=== PATIENT | female | born 1950 | race Caucasian/White ===

== ENCOUNTER 2019-04-12 10:25 | Emergency (ER) | payer MEDICARE ==
[2019-04-12] MEDS ORDERED: Albuterol/Ipratropium 3.0-0.5 MG/3 ML Neb Soln NEB ONE (11:47)
--- NOTE | 2019-04-12 11:47 | EDM.PDOC ---
ED HPI GENERAL MEDICAL PROBLEM - General Chief Complaint: Respiratory Problem Stated Complaint: SOB Time Seen by Provider: 04/12/19 11:33 Source of Information: Reports: Patient History Limitations: Reports: No Limitations - History of Present Illness INITIAL COMMENTS - FREE TEXT/NARRATIVE: 68 yo female presents with 1 week of cough. SOB has worsened over the last 72 hours. PPD smoker. vacationing to the area from [place]. generally healthy - Related Data Allergies Allergy/AdvReac Type Severity Reaction Status Date / Time No Known Allergies Allergy Verified 04/12/19 11:30 Home Meds: Home Meds Albuterol [Ventolin HFA] 1 - 2 puff INH ASDIRECTED 04/12/19 [History] Citalopram Hydrobromide [Celexa] 1 tab PO DAILY 04/12/19 [History] Omeprazole 1 tab PO DAILY 04/12/19 [History] Past Medical History Respiratory History: Reports: Asthma [employer] History: Reports: Psychiatric History: Reports: Addiction, Depression Immunologic History: Reports: Other (See Below) Other Immunologic History: psoriatic arthritis Dermatologic History: Reports: Psoriasis, Other (See Below) Other Dermatologic History: psoriatic arthritis Social & Family History - Tobacco Use Smoking Status *Q: Heavy Tobacco Smoker Years of Tobacco use: 45 Packs/Tins Daily: 1 - Alcohol Use Days Per Week of Alcohol Use: 5 Number of Drinks Per Day: 2 Total Drinks Per Week: 10 - Recreational Drug Use Recreational Drug Use: Yes Recreational Drug Type: Reports: Marijuana/Hashish Other Recreational Drug Type: edible marijuana. ED ROS GENERAL - Review of Systems Review Of Systems: See Below Constitutional: Reports: Malaise, Fatigue. Denies: Fever, Chills HEENT: Reports: Sinus Problem Respiratory: Reports: Shortness of Breath, Wheezing, Cough, Sputum Cardiovascular: Denies: Chest Pain, Edema GI/Abdominal: Denies: Abdominal Pain, Constipation, Diarrhea Skin: Denies: Rash ED EXAM, GENERAL - Physical Exam Exam: See Below Exam Limited By: No Limitations General Appearance: Alert, WD/WN, No Apparent Distress Ears: Normal External Exam, Normal Canal, Hearing Grossly Normal Head: Atraumatic, Normocephalic Neck: Normal Inspection, Supple, Non-Tender, Full Range of Motion. No: Lymphadenopathy (R), Lymphadenopathy (L) Respiratory/Chest: No Respiratory Distress, No Accessory Muscle Use, Chest Non- Tender, Decreased Breath Sounds, Wheezing. No: Crackles, Rhonchi Cardiovascular: Normal Peripheral Pulses, Regular Rate, Rhythm GI/Abdominal: Normal Bowel Sounds, Soft, Non-Tender Back Exam: Normal Inspection, Full Range of Motion Neurological: Alert, Oriented, CN II-XII Intact Psychiatric: Normal Affect, Normal Mood Skin Exam: Warm, Dry, Intact Course - Vital Signs Last Recorded V/S: Last Vital Signs Temp 36.9 C 04/12/19 11:28 Pulse 81 04/12/19 11:32 Resp 18 04/12/19 11:32 BP 126/74 04/12/19 11:32 Pulse Ox 95 04/12/19 11:32 - Orders/Labs/Meds Orders: Active Orders 24 hr Category Date Time Status RT Aerosol Therapy [RC] ASDIRECTED Care 04/12/19 11:47 Active Chest 2V [CR] Stat Exams 04/12/19 11:45 Taken Labs: Laboratory Tests 04/12/19 04/12/19 Range/Units 11:58 11:58 WBC 9.2 (4.5-11.0) K/uL RBC 4.07 (3.30-5.50) M/uL Hgb 12.8 (12.0-15.0) g/dL Hct 39.8 (36.0-48.0) % MCV 98 (80-98) fL MCH 31 (27-31) pg MCHC 32 (32-36) % Plt Count 215 (150-400) K/uL Neut % (Auto) 64 (36-66) % Lymph % (Auto) 26 (24-44) % [place] % (Auto) 9 H (2-6) % Eos % (Auto) 1 L (2-4) % Baso % (Auto) 1 (0-1) % Sodium 140 (140-148) mmol/L Potassium 4.0 (3.6-5.2) mmol/L Chloride 103 (100-108) mmol/L Carbon Dioxide 26 (21-32) mmol/L Anion Gap 10.6 (5.0-14.0) mmol/L BUN 11 (7-18) mg/dL Creatinine 0.7 (0.6-1.0) mg/dL Est Cr Clr Drug Dosing 63.63 mL/min Estimated GFR (MDRD) > 60 (>60) Glucose 100 (74-106) mg/dL Calcium 8.7 (8.5-10.1) mg/dL Meds: Medications Discontinued Medications Generic Name Dose Route Start Last Admin Trade Name Daniel PRN Reason Stop Dose Admin Albuterol/Ipratropium 3 ml 04/12/19 11:47 04/12/19 12:10 Duoneb 3.0-0.5 Mg/3 Ml NEB 04/12/19 11:48 3 ml ONETIME ONE Administration - Radiology Interpretation Free Text/Narrative:: chest x-ray shows RLB infiltrates Departure - Departure Time of Disposition: 12:37 Disposition: Home, Self-Care 01 Condition: Good Clinical Impression: Pneumonia Qualifiers: Pneumonia type: due to unspecified organism Laterality: right Lung location: lower lobe of lung Qualified Code(s): J18.1 - Lobar pneumonia, unspecified organism - Discharge Information *PRESCRIPTION DRUG MONITORING PROGRAM REVIEWED*: Not Applicable *COPY OF PRESCRIPTION DRUG MONITORING REPORT IN PATIENT KIRK: Not Applicable Instructions: Steps to Quit Smoking, [id number] Referrals: PCP,None [Primary Care Provider] - Forms: ED Department Discharge Additional Instructions: Augmentin 500 mg 1 tablet twice daily for 10 days Albuterol MDI every 4 hours as needed increase fluid intake with goal of 1.5 Liters per day Rest follow-up with you primary care provider when you return home - My Orders Last 24 Hours: My Active Orders 04/12/19 11:45 Chest 2V [CR] Stat 04/12/19 11:47 RT Aerosol Therapy [RC] ASDIRECTED - Assessment/Plan Last 24 Hours: My Active Orders 04/12/19 11:45 Chest 2V [CR] Stat 04/12/19 11:47 RT Aerosol Therapy [RC] ASDIRECTED
--- NOTE | 2019-04-12 13:22 | CRLCR ---
INDICATION: SOB. TECHNIQUE: PA and lateral. COMPARISON: None. FINDINGS: Lungs and pleural spaces clear. Heart size and pulmonary vasculature within normal limits. No significant osseous abnormality. IMPRESSION: Negative chest. Dictated by Aj Carbajal MD @ Apr 12 2019 1:19PM Signed by Dr. Aj Carbajal @ Apr 12 2019 1:20PM
== END 2019-04-12 12:48 | disposition home or self-care (01) ==
LOC: JP.ED 10:25
DX: J18.1 Lobar pneumonia, unspecified organism (principal); J45.909 Unspecified asthma, uncomplicated; F32.9 Major depressive disorder, single episode, unspecified; F17.210 Nicotine dependence, cigarettes, uncomplicated; Z79.899 Other long term (current) drug therapy
CPT/HCPCS: 36415; 71046; 80048; 85025; 94640; 99284; 99285-25; J7620-GY